=== PATIENT | female | born 1970 | race Caucasian/White ===

== ENCOUNTER 2021-06-20 10:44 | Day surgery (SDC) | payer OTHER, SELFPAY ==
[~2021-06-20] VITALS: Ht 160 cm; Wt 77.1 kg
[2021-06-20] MEDS ORDERED: CEFAZOLIN SOD 2 GM in D5W 50 ML IV ONE (12:15)
[2021-06-20 12:40] LABS: HCG,QUAL RESULT NEGATIVE (NEGATIVE)
[2021-06-20] MEDS ORDERED: PROPOFOL 200MG/ 20ML VIAL (DIPRIVAN) IV ONE (13:37)
[2021-06-20] MEDS ORDERED: LIDOCAINE 1% 10 MG/ML, 20 ML MDV INJ ONE (13:37)
[2021-06-20] MEDS ORDERED: MIDAZOLAM HCL 5 MG/5 ML VIAL IVP ONE (13:37)
[2021-06-20] MEDS ORDERED: LR 1,000 ML IV.SOLN IV ONE (13:37)
[2021-06-20] MEDS ORDERED: NS IRRIG SOLN 1000 ML IR ONE (13:37)
[2021-06-20] MEDS ORDERED: LR 1,000 ML IV SCH (14:15)
[2021-06-20] MEDS ORDERED: ONDANSETRON HCL 4 MG/2 ML VIAL IVP PRN (14:15)
[2021-06-20] MEDS ORDERED: HYDROmorphone 1 MG/ML INJ. CARTRIDGE IVP PRN ×2 (14:15)
[2021-06-20] MEDS ORDERED: MEPERIDINE HCL/PF 25 MG/ML DISP.SYRIN IVP PRN (14:15)
[2021-06-20 15:16] VITALS: BP_SYST 136
== END 2021-06-20 15:50 | disposition home or self-care (01) ==
LOC: SDS 10:44 → SMU 10:45 → SDS 15:50
PROVIDERS: ATTEND Surgery
DX: R22.0 Localized swelling, mass and lump, head (principal); L72.3 Sebaceous cyst; L57.8 Other skin changes due to chronic exposure to nonionizing radiation; E78.5 Hyperlipidemia, unspecified; Z79.899 Other long term (current) drug therapy; Z20.822 Contact with and (suspected) exposure to COVID-19
CPT/HCPCS: 11440; 36415 ×2; 84703; 87426 ×2; 88304; J0690; J2001; J2250; J2704; J7060; J7120; 88305